=== PATIENT | female | born 1980 | race Caucasian/White ===

== ENCOUNTER 2017-03-03 05:51 | Day surgery (SDC) | payer OTHER ==
[2017-03-03] VITALS (11 sets, daily range): BP systolic 111–136; BP diastolic 68–82; PULSE 93–106; RESP 15–20; Ht 157.5 cm; Wt 70.0 kg
[~2017-03-03] VITALS: Ht 157.5 cm; Wt 70.0 kg
[2017-03-03] MEDS ORDERED: TRAZ50TA18 PO (06:44)
--- NOTE | 2017-03-03 07:37 | HPN ---
Date/Time of Note Date/Time of Note DATE: 03/03/17 TIME: 07:36 Interval H&P Admission Note Pt. seen H&P reviewed: No system changes MACY NAIDU MD Mar 03, 2017 07:37
[2017-03-03] MEDS ORDERED: PROPOFOL 20 ML ONE (08:03)
[2017-03-03] MEDS ORDERED: CEFAZOLIN 1 GM INJ ONE (08:03)
[2017-03-03] MEDS ORDERED: MIDAZOLAM 1 MG/ML 2 ML INJ ONE (08:03)
[2017-03-03] MEDS ORDERED: FENTAnyl 50 MCG/ML VIAL ONE ×2 (08:04→08:57)
[2017-03-03] MEDS ORDERED: ROPIVACAINE 0.5 % 30 ML VIAL ONE (08:04)
[2017-03-03] MEDS ORDERED: POLYMYXIN/BACITRACIN 1L IRRIG IRR ONE (08:44)
[2017-03-03] MEDS ORDERED: ACETAMINOPHEN 1000MG/100ML IV 100 ML ONE (08:53)
[2017-03-03] MEDS ORDERED: DEXAMETHASONE 4 MG/ML 1 ML INJ ONE (08:54)
[2017-03-03] MEDS ORDERED: METOCLOPRAMIDE 10 MG INJ ONE (08:54)
[2017-03-03] MEDS ORDERED: ONDANSETRON 4 MG INJ ONE (08:54)
[2017-03-03] MEDS ORDERED: KETOROLAC 30 MG INJ ONE (08:54)
[2017-03-03] MEDS ORDERED: SUGAMMADEX SODIUM 200 MG/2 ML VIAL IV ONE (08:57)
[2017-03-03] MEDS ORDERED: DIPHENHYDRAMINE 50 MG INJ IV PRN (09:00)
[2017-03-03] MEDS ORDERED: LABETALOL HCL 20MG INJ IV PRN (09:00)
[2017-03-03] MEDS ORDERED: MEPERIDINE 25 MG INJ IV PRN (09:00)
[2017-03-03] MEDS ORDERED: hydrALAzine 20 MG INJ IV PRN (09:00)
[2017-03-03] MEDS ORDERED: FENTAnyl 50 MCG/ML VIAL IV PRN ×3 (09:00)
[2017-03-03] MEDS ORDERED: METOCLOPRAMIDE 10 MG INJ IV PRN (09:00)
[2017-03-03] MEDS ORDERED: HYDROmorphONE (0.2 MG/ML) 10ML SYG IV PRN ×2 (09:00)
[2017-03-03] MEDS ORDERED: EPHEDrine SULFATE 50 MG/5 ML SYG IV PRN (09:00)
[2017-03-03] MEDS ORDERED: OXYCODONE/ACETAMINOPHEN (5/325) TAB PO PRN ×2 (09:00)
[2017-03-03] MEDS ORDERED: ONDANSETRON 4 MG INJ IV PRN ×2 (09:00→09:30)
[2017-03-03] MEDS: HYDROmorphONE (0.2 MG/ML) 10ML SYG IV PRN ×2 (09:20→09:31)
--- NOTE | 2017-03-03 09:21 | OPR ---
Date/Time of Note Date/Time of Note DATE: 03/03/17 TIME: 09:13 Operative Report Procedure Date: Mar 03, 2017 Preoperative Diagnosis Right Ankle Fracture Postoperative Diagnosis same Operation Performed Open reduction internal fixation right distal fibula fracture Use of intraoperative fluoroscopy and interpretation of xrays Surgeon Macy Naidu MD Anesthesia Type: general Tourniquet Time: 17 min Estimated Blood Loss: minimal Transfusion Required: no Specimen: none Grafts/Implants Synthes small frag plate Complications: no Pt Condition Post Procedure: stable Indications This is a 36 yo female with a displaced distal fibula fracture with widening of mortise. She present for fixation. All risks and benefits including infection, bleeding, nerve damage, numbness, hardware failure, stiffness were discussed. Informed consent was obtained. Operative\Procedure Findings Correct extremity was identified in preop area. She was brought to operative room. She had GETA and block placed. pre op antibiotics were given. Right LE was prepped and draped in standard fashion. Time out was performed. Esmark was used thigh high tourniquet inflated to 250 mm Hg. Lateral incision was used. The nerve was not encountered. fracture was found reduced to anatomic reduction. lag screw was placed. lateral plate was used, 1/3 tubular. distal and proximal screw was used. xrays showed anatomic reduction on two planes. the mortise was reduced with ER stress. tourniquet was deflated. adequate hemostasis was obtained. toes were warm. sub q tissue was closed with 2-0 vicryl. belén were used. toes were warm and well perfused. posterior splint was applied. MACY NAIDU MD Mar 03, 2017 09:21
[2017-03-03] MEDS ORDERED: HYDROCODONE/APAP (5/325) TAB PO PRN ×2 (09:30)
[2017-03-03] MEDS ORDERED: morphine 10 MG INJ IV PRN (09:30)
--- NOTE | 2017-03-03 10:06 | RADRPT ---
PROCEDURE: XR Ankle. CLINICAL INDICATION: Postop TECHNIQUE: AP and lateral views of the right ankle are available for review COMPARISON: None available FINDINGS: The patient has undergone ORIF of the distal fibula noting intact lateral plate and multiple interlo cking screws. Alignment is near anatomic. The ankle mortise is preserved. Overlying cast obscures os seous detail. IMPRESSION: 1. ORIF of the distal fibula noting intact hardware and alignment. RPTAT: VV .Uli Vaca MD, Date Time Electronically viewed and signed by .Uli Vaca MD, MD on 03/03/2017 10:06 .d/
--- NOTE | 2017-03-03 12:58 | RADRPT ---
PROCEDURE: Intraoperative imaging of the right ankle with fluoroscopy. CLINICAL INDICATION: Right ankle pain. Intraoperative. TECHNIQUE: Four images of the right ankle were obtained in the operating room with an image intens ifier. No radiologist was in attendance. Fluoroscopy time is 9.8 seconds . COMPARISON: No prior study is available for comparison. FINDINGS: Images demonstrate open reduction and internal fixation of the distal fibula with a lateral plate an d multiple screws. IMPRESSION: 1. Intraoperative imaging of the right ankle. RPTAT: QQ .Samir Sethi MD, MD Date Time Electronically viewed and signed by .Samir Sethi MD, MD on 03/03/2017 12:58 .R/
== END 2017-03-03 11:02 | disposition home or self-care (01) ==
LOC: SDS 05:51 → EDSTATUS 07:30 → SDS 11:02
PROVIDERS: ATTEND Specialist
DX: S82.831A Other fracture of upper and lower end of right fibula, initial encounter for closed fracture (principal); X58.XXXA Exposure to other specified factors, initial encounter; Y93.9 Activity, unspecified; Y99.9 Unspecified external cause status; Y92.9 Unspecified place or not applicable
CPT/HCPCS: 27792; 73600; 73610; C1713; J0131; J0690; J1100; J1170; J1885; J2250; J2405; J2765; J2795; J3010; Z7512; Z7610

== ENCOUNTER 2017-04-16 21:42 | Inpatient (IN) | payer OTHER ==
[~2017-04-16] VITALS: Ht 154.9 cm; Wt 69.5 kg
[~2017-04-16 21:42] MED LIST: TRAZ50TA18 PO
[2017-04-17] VITALS: BP 123/75; RESP 17
[2017-04-17 01:21] VITALS: Ht 154.9 cm; Wt 69.5 kg
[2017-04-17] MEDS ORDERED: INSULIN ASPART [NOVOLOG] 3 ML PEN SC ONE (02:00)
[2017-04-17] MEDS ORDERED: VANCOMYCIN IV PER PHARMACY XX SCH (02:00)
[2017-04-17] MEDS ORDERED: INSULIN GLARGINE [LANtus] 3 ML PEN SC ONE (02:00)
[2017-04-17] MEDS ORDERED: VANCOMYCIN 1.25 GM in SOD CHLORIDE 0.9% 250 ML IVPB ONE (02:00)
[2017-04-17] MEDS ORDERED: ACCU-CHEK XX SCH ×2 (02:00)
[2017-04-17] MEDS ORDERED: morphine 4 MG/ML VIAL IV PRN (02:00)
[2017-04-17 02:25] VITALS: BP 118/65; RESP 18
[2017-04-17 08:00] VITALS: BP 113/70; RESP 18
[2017-04-17] MEDS: INSULIN ASPART [NOVOLOG] 3 ML PEN SC SCH ×5 (08:00→20:27)
[2017-04-17] MEDS: CEFEPIME 1GM/50 ML (PMX) 50 ML IVPB SCH ×2 (08:20→20:26)
--- NOTE | 2017-04-17 08:56 | HP ---
Date/Time of Note Date/Time of Note DATE: 04/17/17 TIME: 08:51 Assessment/Plan VTE Prophylaxis VTE Prophylaxis Intervention: heparin Lines/Catheters IV Catheter Type (from [facility]rs[facility]): Saline Lock Assessment/Plan Assessment/Plan 1. Post-op infection -Patient is status post ORIF for right ankle fracture [address] Mabry -Broad-spectrum antibiotic -Notify orthopedic surgeon -Follow-up wound culture results 2. Diabetes with hyperglycemia -Patient was diagnosed with diabetes 6 weeks ago and has been on metformin -Check A1c -Insulin while in-house HPI/ROS Admit Date/Time Admit Date/Time Apr 17, 2017 at 00:09 Hx of Present Illness This is a 36-year-old female with a history of recently diagnosed diabetes on metformin and right ankle fracture status post ORIF 6 weeks ago. Patient initially presented on outside hospital complaining of open draining wound at the surgical site on the right lateral ankle. This is been progressively getting worse for the past 1 week and this is the first time that she is seeking help. She reported pain only with walking and with palpation. Denied fever or chills chest pain or shortness of breath. She was transferred to [facility] because of insurance reasons. ORIF was done here by Dr. Mabry on 03/03/2017. PMH/Family/Social Social History Smoking Status: Current every day smoker Exam/Review of Systems Vital Signs Vitals Vital Signs Date Time Temp Pulse Resp B/P Pulse Ox O2 Delivery O2 Flow Rate FiO2 04/17/17 08:00 98.2 90 18 113/70 95 Intake and Output 04/16/17 04/16/17 04/17/17 15:00 23:00 07:00 Intake Total 370 ml Balance 370 ml Exam Constitutional: alert, oriented, well developed Head: atraumatic, normocephalic Eyes: EOMI, PERRL Respiratory: clear to auscultation, normal air movement Cardiovascular: nl pulses, regular rate and rhythm Gastrointestinal: non-tender, soft Extremities: other (Open wound on the right lateral ankle at the previous surgical site) Medications Medications Current Medications Insulin Glargine (Lantus) 12 unit DAILY@20 SC ; Start 04/17/17 at 20:00 Diagnostic Test (Pha) (Accu-Chek) 1 02 XX ; Start 04/17/17 at 02:00 Morphine Sulfate 3 mg 3 mg Q4H PRN IV PAIN; Start 04/17/17 at 02:00 Cefepime HCl (Maxipime 1gm/50 ml (Pmx)) 50 ml @ 100 mls/hr Q12 IVPB Last administered on 04/17/17 08:20; Admin Dose 100 MLS/HR; Start 04/17/17 at 09: 00 SANDRINE CATES MD Apr 17, 2017 08:56
[2017-04-17 09:46] LABS: BASOPHILS % 0.5 % (0.0-2.0); EOSINOPHILS # 0.3 10^3/ul (0.0-0.5); EOSINOPHILS % 3.7 % (0.0-7.0); HEMATOCRIT 43.7 % (37.0-47.0); LYMPHOCYTES # 2.1 10^3/ul (0.8-2.9); LYMPHOCYTES % 27.8 % (15.0-51.0); MEAN CORPUSCULAR HEMOGLOBIN 30.2 pg (29.0-33.0); MEAN CORPUSCULAR HGB CONC 34.3 g/dl (32.0-37.0); MEAN CORPUSCULAR VOLUME 87.9 fl (82.0-101.0); MEAN PLATELET VOLUME 10.5 fl (7.4-10.4); MONOCYTE # 0.5 10^3/ul (0.3-0.9); MONOCYTES % 6.4 % (0.0-11.0); NEUTROPHIL # 4.6 10^3/ul (1.6-7.5); NEUTROPHILS % 61.2 % (39.0-77.0); PLATELET COUNT 366 10^3/UL (140-415); RED BLOOD COUNT 4.97 10^6/ul (4.20-5.40); RED CELL DISTRIBUTION WIDTH 11.9 % (11.5-14.5); WHITE BLOOD COUNT 7.5 10^3/ul (4.8-10.8)
[2017-04-17 10:38] LABS: ALBUMIN 3.5 g/dl (3.3-4.9); ALBUMIN/GLOBULIN RATIO 0.97; BILIRUBIN,INDIRECT 0.3 mg/dl (0-1.1); BILIRUBIN,TOTAL 0.3 mg/dl (0.2-1.3); CALCIUM 8.7 mg/dl (8.4-10.2); CREATININE 0.42 mg/dl (0.44-1.00); MAGNESIUM 1.6 mg/dl (1.7-2.5); PHOSPHORUS 4.3 mg/dl (2.5-4.9); POTASSIUM 3.5 mmol/L (3.5-5.1); TOTAL PROTEIN 7.1 g/dl (6.1-8.1)
[2017-04-17] MEDS: VANCOMYCIN 750 MG in DEXTROSE 5% 150 ML IVPB SCH ×2 (13:46→20:27)
[2017-04-17 14:00] VITALS: BP 111/63; RESP 18
[2017-04-17] MEDS ORDERED: MAGNESIUM SULFATE 3 GM in DEXTROSE 5% 100 ML IVPB ONE (14:00)
[2017-04-17] MEDS ORDERED: GLUCAGON 1 MG INJ IM PRN (14:00)
[2017-04-17] MEDS ORDERED: DEXTROSE 50% 50 ML SYRINGE IV PRN ×2 (14:00)
[2017-04-17] MEDS ORDERED: GLUCOSE GEL 15 GRAM TUBE PO PRN ×2 (14:00)
[2017-04-17] MEDS ORDERED: GLUCOSE GEL 15 GRAM TUBE BUCCAL PRN (14:00)
--- NOTE | 2017-04-17 19:19 | RADRPT ---
PROCEDURE: XR Right Ankle. CLINICAL INDICATION: Trauma. Right ankle pain. TECHNIQUE: 2 views. Frontal and lateral. COMPARISON: None. FINDINGS: There is a lateral plate and multiple screws transfixing the distal shaft of the fibula and lateral malleolus. Alignment is satisfactory. There is no new fracture and there is no dislocation. The soft tissues are normal. The articular surfaces are otherwise intact. There is a plantar calcaneal spur. There is no lytic or blastic lesion. Lateral skin belén have been removed. IMPRESSION: 1. Satisfactory postoperative appearance of the right ankle. 2. No other acute abnormality. RPTAT: QQ .Samir Sethi MD, MD Date Time Electronically viewed and signed by .aSmir Sethi MD, MD on 04/17/2017 19:18 .R/
[2017-04-17 20:00] VITALS: BP 112/73; RESP 19
[2017-04-17] MEDS ORDERED: INSULIN GLARGINE [LANtus] 3 ML PEN SC SCH ×2 (20:00)
[2017-04-17] MEDS: NICOTINE (21 MG/24 HR) PATCH TRANSDERM SCH (20:24)
[2017-04-18 02:00] VITALS: BP 120/70; RESP 19
[2017-04-18] MEDS: ACCU-CHEK XX SCH (02:00)
[2017-04-18] MEDS: VANCOMYCIN 750 MG in DEXTROSE 5% 150 ML IVPB SCH ×2 (04:13→12:58)
[2017-04-18 06:41] LABS: BASOPHILS % 0.4 % (0.0-2.0); EOSINOPHILS # 0.3 10^3/ul (0.0-0.5); EOSINOPHILS % 3.4 % (0.0-7.0); HEMATOCRIT 45.3 % (37.0-47.0); HEMOGLOBIN 15.1 g/dl (12.0-16.0); LYMPHOCYTES # 2.3 10^3/ul (0.8-2.9); LYMPHOCYTES % 23.4 % (15.0-51.0); MEAN CORPUSCULAR HEMOGLOBIN 29.2 pg (29.0-33.0); MEAN CORPUSCULAR HGB CONC 33.3 g/dl (32.0-37.0); MEAN CORPUSCULAR VOLUME 87.6 fl (82.0-101.0); MEAN PLATELET VOLUME 10.7 fl (7.4-10.4); MONOCYTE # 0.7 10^3/ul (0.3-0.9); MONOCYTES % 7.3 % (0.0-11.0); NEUTROPHIL # 6.4 10^3/ul (1.6-7.5); NEUTROPHILS % 65.1 % (39.0-77.0); PLATELET COUNT 370 10^3/UL (140-415); RED BLOOD COUNT 5.17 10^6/ul (4.20-5.40); RED CELL DISTRIBUTION WIDTH 12.1 % (11.5-14.5); WHITE BLOOD COUNT 9.8 10^3/ul (4.8-10.8)
[2017-04-18 07:28] LABS: CALCIUM 9.2 mg/dl (8.4-10.2); CREATININE 0.44 mg/dl (0.44-1.00); MAGNESIUM 1.6 mg/dl (1.7-2.5); POTASSIUM 3.7 mmol/L (3.5-5.1)
[2017-04-18 07:43] VITALS: BP 99/58; RESP 17
[2017-04-18] MEDS: INSULIN ASPART [NOVOLOG] 3 ML PEN SC SCH ×7 (08:07→19:58)
[2017-04-18] MEDS: CEFEPIME 1GM/50 ML (PMX) 50 ML IVPB SCH ×2 (08:46→19:55)
[2017-04-18] MEDS ORDERED: MAGNESIUM SULFATE 2 GM/50 ML 50 ML IVPB ONE (13:00)
[2017-04-18 14:02] VITALS: BP 112/74; RESP 19
--- NOTE | 2017-04-18 18:57 | PN ---
Date/Time of Note Date/Time of Note DATE: 04/18/17 TIME: 18:49 Assessment/Plan VTE Prophylaxis VTE Prophylaxis Intervention: LMWH Lines/Catheters IV [facility] Saline Lock Assessment/Plan Chief Complaint/Hosp Course 1. Post-op infection -Patient is status post ORIF for right ankle fracture [address] Mabry,he is aware that patient has been admitted -Continue vancomycin and cefepime -Culture shows gram-negative rods -Wound care consult -X-ray of right ankle is unremarkable 2. Diabetes with hyperglycemia-uncontrolled -A1c is 12.8 -Patient was diagnosed with diabetes 6 weeks ago and has been on metformin but will need insulin as well upon DC -health promotion educator consult -Basal and mealtime insulins have been increased today, have also restarted metformin Prophylaxis: Lovenox Problems: Subjective 24 Hr Interval Summary Constitutional: no complaints Exam/Review of Systems Vital Signs Vitals Vital Signs Date Time Temp Pulse Resp B/P Pulse Ox O2 Delivery O2 Flow Rate FiO2 04/18/17 14:02 98.0 105 19 112/74 99 Intake and Output 04/17/17 04/17/17 04/18/17 14:59 22:59 06:59 Intake Total 50 ml 1770 ml 630 ml Balance 50 ml 1770 ml 630 ml Exam Constitutional: alert, oriented Respiratory: clear to auscultation Cardiovascular: regular rate and rhythm Gastrointestinal: soft, No distended Musculoskeletal: No nl extremities to inspection Results Result Diagram: 04/18/17 0457 04/18/17 0457 Results 24 hrs Laboratory Tests Test 04/17/17 20:20 04/18/17 04:57 04/18/17 08:03 04/18/17 11:51 Bedside Glucose 165 233 H White Blood Count 9.8 # Red Blood Count 5.17 Hemoglobin 15.1 Hematocrit 45.3 Mean Corpuscular Volume 87.6 Mean Corpuscular Hemoglobin 29.2 Mean Corpuscular Hemoglobin Concent 33.3 Red Cell Distribution Width 12.1 Platelet Count 370 Mean Platelet Volume 10.7 H Neutrophils % 65.1 Lymphocytes % 23.4 Monocytes % 7.3 Eosinophils % 3.4 Basophils % 0.4 Nucleated Red Blood Cells % 0.0 Neutrophils # 6.4 Lymphocytes # 2.3 Monocytes # 0.7 Eosinophils # 0.3 Basophils # 0.0 Nucleated Red Blood Cells # 0.0 Sodium Level 138 Potassium Level 3.7 Chloride Level 102 Carbon Dioxide Level 28 Anion Gap 12 Blood Urea Nitrogen 5 L Creatinine 0.44 Glucose Level 240 H Calcium Level 9.2 Magnesium Level 1.6 L Vancomycin Level Trough 6.8 L Test 04/18/17 12:05 04/18/17 17:20 Bedside Glucose 171 333 H Medications Medications Current Medications Morphine Sulfate 3 mg 3 mg Q4H PRN IV PAIN; Start 04/17/17 at 02:00 Cefepime HCl (Maxipime 1gm/50 ml (Pmx)) 50 ml @ 100 mls/hr Q12 IVPB Last administered on 04/18/17 08:46; Admin Dose 100 MLS/HR; Start 04/17/17 at 09: 00 Diagnostic Test (Pha) (Accu-Chek) 1 ea 02 XX ; Start 04/18/17 at 02:00 Insulin Glargine (Lantus) 14 unit DAILY@20 SC Last administered on 04/17/17 20:30; Admin Dose 14 UNIT; Start 04/17/17 at 20:00 Miscellaneous Information 1 ea NOTE XX ; Start 04/17/17 at 14:00 Glucose (Glutose) 15 gm Q15M PRN PO DECREASED GLUCOSE; Start 04/17/17 at 14:00 Glucose (Glutose) 22.5 gm Q15M PRN PO DECREASED GLUCOSE; Start 04/17/17 at 14: 00 Dextrose (D50w Syringe) 25 ml Q15M PRN IV DECREASED GLUCOSE; Start 04/17/17 at 14:00 Dextrose (D50w Syringe) 50 ml Q15M PRN IV DECREASED GLUCOSE; Start 04/17/17 at 14:00 Glucagon (Glucagen) 1 mg Q15M PRN IM DECREASED GLUCOSE; Start 04/17/17 at 14: 00 Glucose (Glutose) 15 gm Q15M PRN BUCCAL DECREASED GLUCOSE; Start 04/17/17 at 14:00 Nicotine 1 patch 1 patch DAILY TRANSDERM Last administered on 04/17/17 20:24 ; Admin Dose 1 PATCH; Start 04/17/17 at 21:00 Vancomycin HCl/ Sodium Chloride (Vancocin/NS) 250 ml @ 83.333 mls/ hr Q8H IVPB ; Start 04/18/17 at 21:00 SALLY PLEITEZ Apr 18, 2017 18:57
[2017-04-18] MEDS: metFORMIN 500 MG TAB PO SCH (19:54)
[2017-04-18] MEDS: NICOTINE (21 MG/24 HR) PATCH TRANSDERM SCH (19:55)
[2017-04-18] MEDS ORDERED: INSULIN GLARGINE [LANtus] 3 ML PEN SC SCH (20:00)
[2017-04-18 20:31] VITALS: BP 111/66; RESP 17
[2017-04-18] MEDS: VANCOMYCIN 1.25 GM in SOD CHLORIDE 0.9% 250 ML IVPB SCH (20:58)
[2017-04-19] VITALS: BP 102/66; RESP 19
[2017-04-19] MEDS: ACCU-CHEK XX SCH (01:54)
[2017-04-19] MEDS: VANCOMYCIN 1.25 GM in SOD CHLORIDE 0.9% 250 ML IVPB SCH ×2 (04:40→13:17)
[2017-04-19 05:15] LABS: BASOPHIL # 0.1 10^3/ul (0.0-0.1); BASOPHILS % 0.5 % (0.0-2.0); EOSINOPHILS # 0.4 10^3/ul (0.0-0.5); HEMATOCRIT 45.7 % (37.0-47.0); HEMOGLOBIN 15.2 g/dl (12.0-16.0); LYMPHOCYTES # 2.6 10^3/ul (0.8-2.9); LYMPHOCYTES % 27.8 % (15.0-51.0); MEAN CORPUSCULAR HEMOGLOBIN 29.7 pg (29.0-33.0); MEAN CORPUSCULAR HGB CONC 33.3 g/dl (32.0-37.0); MEAN CORPUSCULAR VOLUME 89.4 fl (82.0-101.0); MEAN PLATELET VOLUME 10.1 fl (7.4-10.4); MONOCYTE # 0.7 10^3/ul (0.3-0.9); MONOCYTES % 7.4 % (0.0-11.0); NEUTROPHIL # 5.6 10^3/ul (1.6-7.5); NEUTROPHILS % 59.8 % (39.0-77.0); PLATELET COUNT 405 10^3/UL (140-415); RED BLOOD COUNT 5.11 10^6/ul (4.20-5.40); RED CELL DISTRIBUTION WIDTH 12.1 % (11.5-14.5); WHITE BLOOD COUNT 9.4 10^3/ul (4.8-10.8)
[2017-04-19 05:31] LABS: CALCIUM 9.4 mg/dl (8.4-10.2); CREATININE 0.44 mg/dl (0.44-1.00); MAGNESIUM 1.5 mg/dl (1.7-2.5); POTASSIUM 3.7 mmol/L (3.5-5.1)
[2017-04-19 07:45] VITALS: BP 109/81; RESP 18
[2017-04-19] MEDS: INSULIN ASPART [NOVOLOG] 3 ML PEN SC SCH ×6 (07:56→17:31)
[2017-04-19] MEDS: metFORMIN 500 MG TAB PO SCH ×2 (07:57→17:31)
[2017-04-19] MEDS ORDERED: ENOXAPARIN 40 MG/0.4 ML SYG SC SCH (09:00)
[2017-04-19] MEDS: NICOTINE (21 MG/24 HR) PATCH TRANSDERM SCH (09:47)
[2017-04-19] MEDS: CEFEPIME 1GM/50 ML (PMX) 50 ML IVPB SCH (09:47)
[2017-04-19 13:53] VITALS: BP 110/71; RESP 18
[2017-04-19] MEDS ORDERED: AMOX1TAB10 PO (14:15)
[2017-04-19] MEDS ORDERED: [UNRECOGNIZED DRUG - CODE] MC (14:15)
[2017-04-19] MEDS ORDERED: LANT3I SC (14:15)
--- NOTE | 2017-04-19 14:18 | PDOCDIS ---
Discharge Instructions DIAGNOSIS Discharge Diagnosis Surgical site infection CONDITION Patient Condition: Fair HOME CARE INSTRUCTIONS: Special Diet: CARB CONTROLLED DIET FOLLOW UP/APPOINTMENTS Follow-up Plan It is vital that you take care of your diabetes. Your blood sugars are extremely high and will require insulin. I have prescribed you 20 units of insulin to inject yourself daily. It is extremely important for you to see your primary care provider in the next few days for this problem I have also prescribed you an antibitoic to take for you leg infection. Complete these antibiotics and see your orthopedist in clinic as as soon as you can Your prescriptions are available at the [facility] Return to the hospital with any concerning symptoms JOSEFINA SUN MD Apr 19, 2017 14:18
--- NOTE | 2017-04-19 17:33 | DS ---
Date/Time of Note Date/Time of Note DATE: 04/19/17 TIME: 17:31 Discharge Summary Admission/Discharge Info Admit Date/Time Apr 18, 2017 at 15:44 Discharge Date/Time Discharge Diagnosis Surgical site infection Patient Condition: Fair Hx of Present Illness This is a 36-year-old female with a history of recently diagnosed diabetes on metformin and right ankle fracture status post ORIF 6 weeks ago. Patient initially presented on outside hospital complaining of open draining wound at the surgical site on the right lateral ankle. This is been progressively getting worse for the past 1 week and this is the first time that she is seeking help. She reported pain only with walking and with palpation. Denied fever or chills chest pain or shortness of breath. She was transferred to [facility] because of insurance reasons. ORIF was done here by Dr. Mabry on 03/03/2017. Hospital Course 1. Post-op infection -Patient is status post ORIF for right ankle fracture [address] Mabry,he is aware that patient has been admitted -Continue vancomycin and cefepime -Culture shows gram-negative rods -Wound care consult -X-ray of right ankle is unremarkable 2. Diabetes with hyperglycemia-uncontrolled -A1c is 12.8 -Patient was diagnosed with diabetes 6 weeks ago and has been on metformin but will need insulin as well upon DC -special educator consult -Basal and mealtime insulins have been increased today, have also restarted metformin Prophylaxis: Lovenox COURSE: Patient found to have wound infection of her leg Treated with IV abx and rapidly improved Orthopedist contacted and prefers to see her in clinic Sugars were very elevated. The patient was started on glargine 20 to be taken daily and continued on metformin at discharge She was very adamant about leaving the hospital today. I would have preferred she stay for diabetic medication titration and further monitoring of her leg wound, however I agreed to discharge provided that she see both her primary care doctor and orthopedist in clinic this week for management of her DMII with hyperglyemia and surgical site infection. She agreed to this and will come back to the ED if feels symptoms of hyperglycemia or worsening symptoms in her ankle. She is aware of risk fo hyperglycemia. She was also extensively counseled on the importance of smoking cessation She was given Augmentin PO at time of discharge Home Meds Reported Medications Trazodone Hcl* (Trazodone Hcl*) 50 Mg Tablet, 25 MG PO QHS, #30 TAB 03/03/17 Follow-up Plan It is vital that you take care of your diabetes. Your blood sugars are extremely high and will require insulin. I have prescribed you 20 units of insulin to inject yourself daily. It is extremely important for you to see your primary care provider in the next few days for this problem I have also prescribed you an antibitoic to take for you leg infection. Complete these antibiotics and see your orthopedist in clinic as as soon as you can Your prescriptions are available at the [facility] in [place] Return to the hospital with any concerning symptoms Primary Care Provider Not On Staff Doctor Pending Labs Laboratory Tests Test 04/18/17 19:50 04/19/17 01:38 04/19/17 04:38 04/19/17 07:53 Bedside Glucose 223mg/dL (70-220) 166mg/dL (70-220) 198mg/dL (70-220) White Blood Count 9.410^3/ul (4.8-10.8) Red Blood Count 5.1110^6/ul (4.20-5.40) Hemoglobin 15.2g/dl (12.0-16.0) Hematocrit 45.7% (37.0-47.0) Mean Corpuscular Volume 89.4fl (82.0-101.0) Mean Corpuscular Hemoglobin 29.7pg (29.0-33.0) Mean Corpuscular Hemoglobin Concent 33.3g/dl (32.0-37.0) Red Cell Distribution Width 12.1% (11.5-14.5) Platelet Count 45923^3/UL (140-415) Mean Platelet Volume 10.1fl (7.4-10.4) Neutrophils % 59.8% (39.0-77.0) Lymphocytes % 27.8% (15.0-51.0) Monocytes % 7.4% (0.0-11.0) Eosinophils % 4.0% (0.0-7.0) Basophils % 0.5% (0.0-2.0) Nucleated Red Blood Cells % 0.0/100WBC (0.0-0.0) Neutrophils # 5.610^3/ul (1.6-7.5) Lymphocytes # 2.610^3/ul (0.8-2.9) Monocytes # 0.710^3/ul (0.3-0.9) Eosinophils # 0.410^3/ul (0.0-0.5) Basophils # 0.110^3/ul (0.0-0.1) Nucleated Red Blood Cells # 0.010^3/ul (0.0-0.0) Sodium Level 139mmol/L (135-144) Potassium Level 3.7mmol/L (3.5-5.1) Chloride Level 100mmol/L (97-110) Carbon Dioxide Level 26mmol/L (21-31) Anion Gap 17 (8-16) Blood Urea Nitrogen 8mg/dl (7-20) Creatinine 0.44mg/dl (0.44-1.00) Glucose Level 177mg/dl (70-220) Calcium Level 9.4mg/dl (8.4-10.2) Magnesium Level 1.5mg/dl (1.7-2.5) Test 04/19/17 11:43 Bedside Glucose 291mg/dL (70-220) JOSEFINA SUN MD Apr 19, 2017 17:33
== END 2017-04-19 18:25 | disposition home or self-care (01) | DRG 863 ==
LOC: PP2 04-17 00:09 → INTOOBSV 04-17 00:09 → OBSVTOIN 04-18 15:44
PROVIDERS: ADMIT Internal Medicine; ATTEND Internal Medicine
DX: T81.4XXA Infection following a procedure, initial encounter (principal); E11.65 Type 2 diabetes mellitus with hyperglycemia; L08.89 Other specified local infections of the skin and subcutaneous tissue; Z79.84 Long term (current) use of oral hypoglycemic drugs; Y83.8 Other surgical procedures as the cause of abnormal reaction of the patient, or of later complication, without mention of misadventure at the time of the procedure
CPT/HCPCS: 73600; 80048; 80053; 80202; 82962; 83036; 83735; 84100; 85025; 87070; 99217; G0378; J0692; J1650; J1815; J3370; J3475; J7050